=== PATIENT | female | born 1960 | race Hispanic/Latino ===

== ENCOUNTER 2019-06-30 07:34 | Outpatient (CLI) | payer BC ==
--- NOTE | 2019-06-30 08:43 | MMO ---
Bilateral MAMMO Bilat Screen DDI+WINDY. CLINICAL HISTORY: Patient is 59 years old and is seen for screening. The patient has no family history of breast cancer. The patient has no personal history of cancer. VIEWS: The views performed were: bilateral craniocaudal with tomosynthesis and bilateral mediolateral oblique with tomosynthesis. FILMS COMPARED: The present examination has been compared to prior imaging studies performed at 01/30/2015 and 04/09/2016. This study has been interpreted with the assistance of computer-aided detection. MAMMOGRAM FINDINGS: There are scattered fibroglandular densities. There are new fine pleomorphic calcifications with grouped or clustered distribution and associated architectural distortion seen in the middle region of the right breast at 12 o'clock. The findings are highly suspicious for breast cancer. In the left breast, there are no suspicious masses, calcifications or areas of architectural distortion. IMPRESSION: NEW CALCIFICATIONS IN THE RIGHT BREAST REQUIRE ADDITIONAL EVALUATION. ADDITIONAL PROJECTIONS (RIGHT CRANIOCAUDAL SPOT COMPRESSION MAGNIFICATION; RIGHT MEDIOLATERAL OBLIQUE SPOT COMPRESSION MAGNIFICATION; AND RIGHT MEDIOLATERAL SPOT COMPRESSION MAGNIFICATION) ARE RECOMMENDED. AN ULTRASOUND EXAM IS RECOMMENDED. THE RESULTS OF THIS EXAM WERE SENT TO THE PATIENT. ACR BI-RADS Category 0 - Incomplete: Need additional imaging evaluation. [facility] will notify the patient of the need for additional imaging services. MAMMOGRAPHY NOTE: 1. A negative mammogram report should not delay a biopsy if a dominant of clinically suspicious mass is present. 2. Approximately 10% to 15% of breast cancers are not detected by mammography. 3. Adenosis and dense breasts may obscure an underlying neoplasm. Reported by: SRINIVASA HUTCHINS MD Electonically Signed: [id number]
== END 2019-06-30 07:35 | disposition home or self-care (01) ==
LOC: BICMAMMO 07:34
PROVIDERS: ATTEND Family Medicine
DX: Z12.31 Encounter for screening mammogram for malignant neoplasm of breast (principal); R92.1 Mammographic calcification found on diagnostic imaging of breast
CPT/HCPCS: 77063; 77067

== ENCOUNTER 2019-07-07 13:17 | Outpatient (CLI) | payer BC ==
--- NOTE | 2019-07-07 13:48 | MMO ---
Right Breast MAMMO Unilat Diag DDI RT+WINDY. CLINICAL HISTORY: Patient is 59 years old and is seen for additional evaluation requested from prior study. The patient has no family history of breast cancer. The patient has no personal history of cancer. VIEWS: The views performed were: right craniocaudal magnification; right mediolateral magnification; and right mediolateral with tomosynthesis. FILMS COMPARED: The present examination has been compared to prior imaging studies performed at [facility] on 01/30/2015, 04/09/2016, 06/30/2019 and 07/07/2019. This study has been interpreted with the assistance of computer-aided detection. MAMMOGRAM FINDINGS: There are scattered fibroglandular densities. There is an area of architectural distortion with associated calcifications with grouped or clustered distribution seen in the anterior region of the right breast at 12 o'clock. Sonography demonstrates a hypoechoic shadowing mass in this location. An adjacent simple cyst is seen. IMPRESSION: AREA OF ARCHITECTURAL DISTORTION IN THE RIGHT BREAST IS HIGHLY SUGGESTIVE OF MALIGNANCY. AN ULTRASOUND-GUIDED BREAST BIOPSY IS RECOMMENDED. RESULTS AND RECOMMENDATIONS DISCUSSED WITH THE PATIENT AND QUESTIONS ANSWERED. THE RESULTS OF THIS EXAM WERE SENT TO THE PATIENT. ACR BI-RADS Category 5 - Highly suggestive of malignancy - appropriate action should be taken MAMMOGRAPHY NOTE: 1. A negative mammogram report should not delay a biopsy if a dominant of clinically suspicious mass is present. 2. Approximately 10% to 15% of breast cancers are not detected by mammography. 3. Adenosis and dense breasts may obscure an underlying neoplasm. Reported by: CUATE MARTINI MD Electonically Signed: [id number]
--- NOTE | 2019-07-07 14:14 | ULT ---
LIMITED RIGHT BREAST ULTRASOUND: 07/07/2019 PROVIDED CLINICAL HISTORY: Abnormal mammogram findings. TECHNIQUE: Limited sonographic interrogation of the right breast was performed in the region of mammographic con cern. FINDINGS: There is a poorly defined, angular, hypoechoic mass with associated shadowing and echogenic foci seen at the 12 o'clock position of the right breast, corresponding with the mammogram finding. An adjacen t simple cyst is seen. IMPRESSION: BI-RADS category 5 - highly suspicious for malignancy. Ultrasound guided biopsy is recommended. Results and recommendations discussed with the patient and q uestions answered. POS: OFF
== END 2019-07-07 13:18 | disposition home or self-care (01) ==
LOC: BICMAMMO 13:17
PROVIDERS: ATTEND Family Medicine
DX: R92.1 Mammographic calcification found on diagnostic imaging of breast (principal); Q83.9 Congenital malformation of breast, unspecified
CPT/HCPCS: G0279

== ENCOUNTER → 2019-07-08 | Day surgery (SDC) | payer BC ==
--- NOTE | 2019-07-08 11:44 | MMO ---
Right Breast MAMMO Unilat Diag DDI RT. CLINICAL HISTORY: Patient is 59 years old and is seen for diagnostic exam. The patient has no family history of breast cancer. The patient has no personal history of cancer. The patient has a history of right Ultrasound Guided Core Biopsy in June,. VIEWS: The views performed were: right craniocaudal and right mediolateral. FILMS COMPARED: The present examination has been compared to prior imaging studies performed at [facility] on 04/09/2016, 06/30/2019 and 07/07/2019. This study has been interpreted with the assistance of computer-aided detection. MAMMOGRAM FINDINGS: The breast is heterogeneously dense, which could obscure a lesion on mammography. There is an irregular mass with associated fine pleomorphic calcifications and biopsy clip seen in the upper region of the right breast. IMPRESSION: MASS IN THE RIGHT BREAST IS CONFIRMED UTILIZING POST PROCEDURE MAMMOGRAM. THE RESULTS OF THIS EXAM WERE SENT TO THE PATIENT. MAMMOGRAPHY NOTE: 1. A negative mammogram report should not delay a biopsy if a dominant of clinically suspicious mass is present. 2. Approximately 10% to 15% of breast cancers are not detected by mammography. 3. Adenosis and dense breasts may obscure an underlying neoplasm. Reported by: MARCO ANTONIO BESS MD Electonically Signed: [id number]
--- NOTE | 2019-07-08 12:15 | ULT ---
SONOGRAPHIC GUIDED RIGHT BREAST MASS BIOPSY: HISTORY: Right breast mass. FINDINGS: After explaining the procedure and answering all questions, sonographic evaluation of the superior as pect of the right breast was again performed. Sterile technique, buffered local anesthesia, sonograph ic guidance and a medial approach were used to carefully advance a 14 gauge biopsy needle to the leve l of the hypoechoic mass. Position was confirmed with sonography. A total of two 14-gauge core biopsy specimens were obtained and submitted to pathology for evaluation . A localization clip was placed in the biopsy bed, under sonographic control. The patient tolerated the procedure well and was dismissed in good condition. IMPRESSION: Technically successful sonographic guided biopsy right breast mass. Pathology is pending. POS: FRANTZ
== END ==
LOC: BICULT 10:42
PROVIDERS: ATTEND Family Medicine
PROC: 0H95XZX Drainage of Chest Skin, External Approach, Diagnostic (ICD-10-PCS; principal; 2019-07-08)
DX: D05.01 Lobular carcinoma in situ of right breast (principal)
CPT/HCPCS: 19083; 88305; 88341; 88342

== ENCOUNTER 2019-07-22 07:35 | Outpatient (CLI) | payer BC ==
--- NOTE | 2019-07-22 08:23 | ULT ---
RIGHT AXILLARY ULTRASOUND: INDICATION: History of right-sided breast cancer. FINDINGS: Hutchison scale and color Doppler images submitted of the right axilla demonstrate 1 visible right axillar y lymph node measuring 2.7 x 1.4 cm in size. The cortical mantle of the lymph node is within normal limits measuring 1.1 mm. There is a normal fatty hilum related to the lymph node. No pathologically enlarged or suspicious nodes are demonstrated within the right axilla. IMPRESSION: No suspicious right axillary lymphadenopathy imaged. POS: OFF
== END 2019-07-22 07:36 | disposition home or self-care (01) ==
LOC: BICULT 07:35
PROVIDERS: ATTEND Internal Medicine Hematology & Oncology
DX: C50.911 Malignant neoplasm of unspecified site of right female breast (principal)
CPT/HCPCS: 76999

== ENCOUNTER 2019-08-05 06:30 | Outpatient (CLI) | payer BC ==
[2019-08-05 15:24] LABS: #Basophils 0.1 thou/uL (0.0-0.2); #Eosinphils 0.2 thou/uL (0.0-0.7); #Lymphocytes 3.1 thou/uL (1.20-3.40); #Monocytes 0.4 thou/uL (0.11-0.59); #Neutrophils 5.3 thou/uL (1.40-6.50); %Basophils 0.7 % (0.0-1.0); %Eosinophils 1.8 % (0.0-10.0); %Monocytes 4.5 % (0.0-10.0); %Neutrophils 58.9 % (42.0-75.0); Hemoglobin 13.3 g/dL (12.0-16.0); Mean Corpuscular HGB CONC 33.3 g/dL (32.0-36.0); Mean Corpuscular Hemoglobin 28.9 pg (27.0-31.0); Mean Corpuscular Volume 86.8 fL (78.0-98.0); Mean Platelet Volume 10.8 fL (7.4-10.4); Platelet Count 270 thou/uL (130-400); RBC Distribution Width 13.4 % (11.5-14.5)
[2019-08-05 15:41] LABS: Anion Gap 10 mmol/L (10-20); BUN (Urea Nitrogen) 14 mg/dL (9.8-20.1); Calc. Creatinine Clearance 0 mL/min (70-130); Carbon Dioxide 30 mmol/L (22-29); Chloride 105 mmol/L (98-107); Estimated GFR-MDRD 67; Glucose 173 mg/dL (70-105); Potassium 4.1 mmol/L (3.5-5.1); Sodium 141 mmol/L (136-145)
== END 2019-08-05 06:31 | disposition home or self-care (01) ==
LOC: LABBT 06:30
PROVIDERS: ATTEND Surgery
DX: Z01.818 Encounter for other preprocedural examination (principal); C50.911 Malignant neoplasm of unspecified site of right female breast
CPT/HCPCS: 80048; 85025; 93005; 93010

== ENCOUNTER 2019-08-09 07:44 | Day surgery (SDC) | payer BC ==
[2019-08-05 13:52] VITALS: BMI 28.3
--- NOTE | 2019-08-09 10:08 | NM ---
PROCEDURE: Lymphoscintigraphy of the right breast HISTORY: Right breast cancer SULKY DRIVER: Tenzin ANESTHESIA: 3 mL of buffered 1% lidocaine AGENT: 392 uCi of technetium 99 M filtered sulfur colloid TECHNIQUE: The breast was prepped with alcohol in the periareolar region. Lidocaine was used to anest hetize 4 spots surrounding the nipple at the 12:00, 3:00, 6:00, and 9:00 positions. The radiopharmaceutical was then injected in these 4 locations surrounding the nipple. Massage was performed of the breast helping the radiopharmaceutical enter the lymphatics. Images obta ined showed uptake of the radiopharmaceutical within 2 right axillary lymph nodes. IMPRESSION: Right axillary sentinel lymph nodes
[2019-08-09] MEDS ORDERED: Dexamethasone 20 MG/5 ML VIAL ONE (10:38)
[2019-08-09] MEDS ORDERED: Ondansetron PF 4 MG/2 ML Vial ONE (10:38)
[2019-08-09] MEDS ORDERED: Lidocaine 1% PF 5 ML VIAL ONE (10:38)
[2019-08-09] MEDS ORDERED: PROPOFOL 200 MG/20 ML VIAL ONE (10:38)
[2019-08-09] MEDS ORDERED: Bupivacaine 0.25% HCL 30 ML VIAL ONE (10:42)
[2019-08-09] MEDS ORDERED: Isosulfan Blue 50 MG/5 ML VIAL ONE (10:42)
[2019-08-09] MEDS ORDERED: Lidocaine 1% w/Epinephrine 1:100K 20 ML VIAL ONE (10:42)
[2019-08-09] MEDS ORDERED: Fentanyl 100 MCG/2 ML VIAL ONE ×3 (10:44→13:21)
[2019-08-09] MEDS ORDERED: Methylene Blue 50 MG/10 ML AMPUL ONE (10:46)
[2019-08-09] MEDS ORDERED: Midazolam HCl 2 mg/2 ml Vial ONE (11:04)
--- NOTE | 2019-08-09 12:14 | MMO ---
MAMMOGRAPHIC GUIDED NEEDLE LOCALIZATION SPECIMEN RADIOGRAPH PREPROCEDURE DIAGNOSIS: Right Breast cancer PROCEDURE: 1. Needle localization of right breast biopsy clip and calcifications 2. Specimen radiograph NEUROPSYCHIATRIST: Tenzin ANESTHESIA: 5 mL of buffered 1% lidocaine with epinephrine TECHNIQUE: Prior to the procedure, the risks and benefits of a needle localization of the biopsy clip was explai tevin with the patient and full consent was obtained. The prior mammograms were reviewed showing the biopsy clip in the upper of the right breast. Approach from superior was performed. The patient was placed in compression with the localization gri d in place. The breast was then prepped with Betadine. Lidocaine was used to anesthetize the skin and soft tissues of the breast. A 5 cm Wayland needle was th en placed perpendicular to the skin within the grid at the area of best entry to localize the biopsy clip. The wire was deployed. A orthogonal view was obtained showing the needle and wire in good position in relation to the biopsy clip. The needle and wire were then secured to the patient. The patient was then sent back to day surgery for eventual surgical excision. A specimen radiograph was obtained while the patient was on the operating room table. The biopsy clip and calcifications were seen in the specimen. However, the superficial margin was narrow from the calcifications to the margin. This is in the region where the wire coursed into the surgical specimen . This was communicated to the operating room at the time of the procedure.
--- NOTE | 2019-08-10 12:49 | OP ---
DATE OF PROCEDURE: 08/09/2019 PREOPERATIVE DIAGNOSIS: Right breast cancer, clinical stage T1 N0 MX. POSTOPERATIVE DIAGNOSIS: Right breast cancer, clinical stage T1 N0 MX. PROCEDURES PERFORMED: 1. Right partial mastectomy after needle localization. 2. Right deep axillary node biopsy (sentinel node protocol). ANESTHESIA: General. ESTIMATED BLOOD LOSS: Minimal. COMPLICATIONS: None. SPECIMENS: Right breast specimen marked with two short superior, one long lateral, sent to Path for final diagnosis, two right axillary sentinel nodes. DESCRIPTION OF PROCEDURE: The patient had undergone preop needle wire localization of the right breast abnormality with previous clip placement as well as lymphoscintigraphy. She was taken to the operating room and laid supine on the operating room table. After general anesthetic was obtained, a 5 mL of methylene blue dye infiltrated on the right nipple and massaged for 10 minutes. The right breast, axilla, and arm were all prepped and draped in a sterile fashion. Incision was made on the inferior hairline of the right axilla. Cautery was taken down to the clavipectoral fascia. Neoprobe was used to find the area of increased uptake. There were two areas, these were both removed. The background counts dropped to near zero. The two sentinel nodes were sent to Path for final diagnosis. The wound was irrigated. Local anesthetic was applied. The wound was closed using 3-0 Vicryl and 4-0 Monocryl and Dermabond. Incision was made on the margin of the areola around the top. Flaps were raised superomedially inferolaterally around the end of the needle localization wire. Specimen was sent to Path, which revealed the clip and calcifications to be in the specimen. It was then sent to Path for final diagnosis. The specimen was marked with two short superior, one long lateral. Meticulous hemostasis was obtained at the lumpectomy site, it was irrigated and closed using 3-0 Vicryl, 4-0 Monocryl, and Dermabond. The patient was sent to Recovery in stable condition. All instrument counts, needle counts, and lap counts were correct. Job ID: [id number]
== END 2019-08-09 15:30 | disposition home or self-care (01) ==
LOC: SDC 07:44
PROVIDERS: ATTEND Surgery
PROC: 07B50ZX Excision of Right Axillary Lymphatic, Open Approach, Diagnostic (ICD-10-PCS; principal; 2019-08-09)
PROC: 0HBT0ZZ Excision of Right Breast, Open Approach (ICD-10-PCS; principal; 2019-08-09)
DX: C50.411 Malignant neoplasm of upper-outer quadrant of right female breast (principal); C77.3 Secondary and unspecified malignant neoplasm of axilla and upper limb lymph nodes; E11.9 Type 2 diabetes mellitus without complications; I10 Essential (primary) hypertension; E78.5 Hyperlipidemia, unspecified; E55.9 Vitamin D deficiency, unspecified; Z17.0 Estrogen receptor positive status [ER+]; Z86.010 Personal history of colon polyps; Z79.84 Long term (current) use of oral hypoglycemic drugs; Z79.899 Other long term (current) drug therapy
CPT/HCPCS: 19281; 36416; 76098; 78195; 88307; 88341; 88342; A9541; J0690; J1100; J2001; J2250; J2405; J2704; J3010; Q9968; S0020

== ENCOUNTER 2019-08-17 07:54 | Day surgery (SDC) | payer BC ==
[2019-08-16 10:55] VITALS: BMI 27.0
[2019-08-17] MEDS ORDERED: Bupivacaine PF 0.5% 30 ML VIAL ONE (09:20)
[2019-08-17] MEDS ORDERED: Lidocaine 1% w/Epinephrine 1:100K 20 ML VIAL ONE (09:20)
[2019-08-17] MEDS ORDERED: Fentanyl 100 MCG/2 ML VIAL ONE ×3 (09:23→11:34)
[2019-08-17] MEDS ORDERED: Dexamethasone 20 MG/5 ML VIAL ONE (09:36)
[2019-08-17] MEDS ORDERED: Ondansetron PF 4 MG/2 ML Vial ONE (09:36)
[2019-08-17] MEDS ORDERED: PROPOFOL 200 MG/20 ML VIAL ONE (09:36)
[2019-08-17] MEDS ORDERED: Lidocaine 1% PF 5 ML VIAL ONE (09:36)
[2019-08-17] MEDS ORDERED: Ketorolac Tromethamine 30 MG/ML VIAL ONE (09:36)
--- NOTE | 2019-08-17 15:21 | OP ---
DATE OF PROCEDURE: 08/17/2019 PREOPERATIVE DIAGNOSES: 1. Right breast cancer. 2. Previous lumpectomy with positive margin. POSTOPERATIVE DIAGNOSES: 1. Right breast cancer. 2. Previous lumpectomy with positive margin. PROCEDURES PERFORMED: 1. Right breast excision. 2. Re-excision lumpectomy. ANESTHESIA: General. ESTIMATED BLOOD LOSS: Minimal. COMPLICATIONS: None. SPECIMEN: Three new margins taken, superior/anterior, lateral, and posterior, all marked with suture on new margin. ESTIMATED BLOOD LOSS: 20 mL. COMPLICATIONS: None. DESCRIPTION OF PROCEDURE: The patient was taken to the operating room and laid supine on the operating room table. After general anesthetic was obtained, the right breast was prepped and draped in a sterile fashion. Previous incision was reopened. Additional margin of tissue was taken out on the superior anterior area of the previous lumpectomy site. A stitch was placed on the new margin. An additional lateral and posterior margins were taken with a stitch on the new margins. All sent to Path for final diagnosis. The wound was irrigated. Local anesthetic was applied. The wound was closed using 3-0 Vicryl, 4-0 Monocryl, and Dermabond. The patient was sent to Recovery in stable condition. All sponge counts, needle counts, and lap counts were correct. Job ID: [id number]
== END 2019-08-17 12:53 | disposition home or self-care (01) ==
LOC: SDC 07:54
PROVIDERS: ATTEND Surgery
PROC: 0HBT0ZZ Excision of Right Breast, Open Approach (ICD-10-PCS; principal; 2019-08-17)
DX: C50.911 Malignant neoplasm of unspecified site of right female breast (principal); N60.11 Diffuse cystic mastopathy of right breast; C77.9 Secondary and unspecified malignant neoplasm of lymph node, unspecified; Z79.84 Long term (current) use of oral hypoglycemic drugs; Z79.899 Other long term (current) drug therapy; Z17.0 Estrogen receptor positive status [ER+]
CPT/HCPCS: 88307; 88341; 88342; J0690; J1100; J1885; J2001; J2405; J2704; J3010; S0020

== ENCOUNTER 2019-12-28 15:17 | Outpatient (CLI) | payer BC ==
--- NOTE | 2019-12-28 17:23 | BD ---
Exam: DEXA Bone Density 12/28/19 COMPARISON: None. HISTORY: 59-year-old postmenopausal female for screening. FINDINGS: Lumbar Spine: BMD (g/cm2) T-SCORE L1 0.961 -0.3 L2 0.974 -0.5 L3 1.045 -0.4 L4 1.037 -0.2 L1-L4 1.005 -0.4 Left Femoral Neck: 0.636 -1.4 Total Femur: 0.837 -0.9 Impression: Osteopenia. This patient has a ten year WHO fracture risk for a major osteoporotic fracture of 5.2% a nd of a hip fracture of 0.6%. POS: [facility]
== END 2019-12-28 15:18 | disposition home or self-care (01) ==
LOC: BICMAMMO 15:17
PROVIDERS: ATTEND Internal Medicine Hematology & Oncology
DX: Z13.820 Encounter for screening for osteoporosis (principal); C50.811 Malignant neoplasm of overlapping sites of right female breast; M85.852 Other specified disorders of bone density and structure, left thigh; Z78.0 Asymptomatic menopausal state
CPT/HCPCS: 77080

== ENCOUNTER 2020-08-23 08:20 | Outpatient (CLI) | payer BC ==
--- NOTE | 2020-08-23 08:50 | MMO ---
Bilateral MAMMO Bilat Diag DDI+WINDY. CLINICAL HISTORY: Patient is 60 years old and is seen for diagnostic exam. The patient has no family history of breast cancer. The patient has a history of Ultrasound guided core biopsy procedure revealed invasive ductal right breast carcinoma in June,. The patient has a history of right Excisional Biopsy in July, - malignant and right Ultrasound Guided Core Biopsy in June,. VIEWS: The views performed were: bilateral craniocaudal with tomosynthesis; bilateral mediolateral oblique with tomosynthesis; and bilateral mediolateral with tomosynthesis. FILMS COMPARED: The present examination has been compared to prior imaging studies performed at [facility] on 06/30/2019, 07/07/2019 and 07/08/2019. This study has been interpreted with the assistance of computer-aided detection. MAMMOGRAM FINDINGS: The breasts are heterogeneously dense, which could obscure a lesion on mammography. There are RIGHT SIDED post-operative and post radiation changes. There are no suspicious masses, suspicious calcifications, or new areas of architectural distortion. IMPRESSION: THERE IS NO MAMMOGRAPHIC EVIDENCE OF MALIGNANCY. A ROUTINE FOLLOW-UP MAMMOGRAM IN 1 YEAR IS RECOMMENDED. THE RESULTS OF THIS EXAM WERE SENT TO THE PATIENT. ACR BI-RADS Category 2 - Benign finding MAMMOGRAPHY NOTE: 1. A negative mammogram report should not delay a biopsy if a dominant of clinically suspicious mass is present. 2. Approximately 10% to 15% of breast cancers are not detected by mammography. 3. Adenosis and dense breasts may obscure an underlying neoplasm. Reported by: JESSICA LOPEZ MD Electonically Signed: [id number]
== END 2020-08-23 08:21 | disposition home or self-care (01) ==
LOC: BICMAMMO 08:20
PROVIDERS: ATTEND Surgery
DX: Z08 Encounter for follow-up examination after completed treatment for malignant neoplasm (principal); Z85.3 Personal history of malignant neoplasm of breast
CPT/HCPCS: 77066; G0279

== ENCOUNTER 2020-12-31 08:19 | Outpatient (CLI) | payer BC | END 2020-12-31 08:20 | disposition home or self-care (01) | LOC: BICMAMMO 08:19 | PROVIDERS: ATTEND Internal Medicine Hematology & Oncology | DX: M85.89 Other specified disorders of bone density and structure, multiple sites (principal) | CPT/HCPCS: 77080 ==

== ENCOUNTER 2021-09-18 13:30 | Outpatient (CLI) | payer BC | END 2021-09-18 13:31 | disposition home or self-care (01) | LOC: BICMAMMO 13:30 | PROVIDERS: ATTEND Family Medicine | DX: Z08 Encounter for follow-up examination after completed treatment for malignant neoplasm (principal); Z85.3 Personal history of malignant neoplasm of breast | CPT/HCPCS: 77066; G0279 ==

== ENCOUNTER 2022-01-02 07:44 | Outpatient (CLI) | payer BC | END 2022-01-02 07:45 | disposition home or self-care (01) | LOC: BICMAMMO 07:44 | PROVIDERS: ATTEND Internal Medicine Hematology & Oncology | DX: M85.851 Other specified disorders of bone density and structure, right thigh (principal); M85.852 Other specified disorders of bone density and structure, left thigh | CPT/HCPCS: 77080 ==

== ENCOUNTER 2022-09-23 08:05 | Outpatient (CLI) | payer BC | END 2022-09-23 08:06 | disposition home or self-care (01) | LOC: BICMAMMO 08:05 | PROVIDERS: ATTEND Surgery | DX: Z08 Encounter for follow-up examination after completed treatment for malignant neoplasm (principal); Z85.3 Personal history of malignant neoplasm of breast | CPT/HCPCS: 77066; G0279 ==

== ENCOUNTER 2024-02-11 08:04 | Outpatient (CLI) | payer BC | END 2024-02-11 08:05 | disposition home or self-care (01) | LOC: BICMAMMO 08:04 | PROVIDERS: ATTEND Nurse Practitioner Family | DX: Z08 Encounter for follow-up examination after completed treatment for malignant neoplasm (principal); Z13.820 Encounter for screening for osteoporosis; M81.0 Age-related osteoporosis without current pathological fracture; M85.851 Other specified disorders of bone density and structure, right thigh; Z85.3 Personal history of malignant neoplasm of breast | CPT/HCPCS: 77066; 77080; G0279 ==